=== PATIENT | female | born 1950 | race African-American/Black ===

== ENCOUNTER 2022-07-19 16:55 | Emergency (ER) | payer OTHER ==
[~2022-07-19] VITALS: Ht 170.2 cm; Wt 86.0 kg
[2022-07-19 17:08] VITALS: BP 184/88
[2022-07-19] MEDS ORDERED: ACET-2708 MT (19:36)
[2022-07-19] MEDS ORDERED: CYCL5TAB MT (19:37)
== END 2022-07-19 19:50 | disposition home or self-care (01) ==
LOC: ER 16:55
DX: S09.90XA Unspecified injury of head, initial encounter (principal); V49.59XA Passenger injured in collision with other motor vehicles in traffic accident, initial encounter; Y93.89 Activity, other specified; Y92.89 Other specified places as the place of occurrence of the external cause; Y99.8 Other external cause status; I10 Essential (primary) hypertension; M25.561 Pain in right knee; M25.532 Pain in left wrist
CPT/HCPCS: 73110; 73562; 99284